=== PATIENT | male | born 1935 | race Caucasian/White ===

== ENCOUNTER 2019-06-04 19:52 | Observation (INO) | payer MEDICARE, OTHER ==
[2019-06-04] MEDS ORDERED: Sodium Chloride 0.9% 10 ML Syringe FLUSH PRN (20:03)
[2019-06-04] MEDS ORDERED: Sodium Chloride 0.9% 500 ML IV ONE (20:04)
--- NOTE | 2019-06-04 20:26 | EDM.PDOC ---
ED HPI GENERAL MEDICAL PROBLEM - General Chief Complaint: Syncope Stated Complaint: PASSED OUT Time Seen by Provider: 06/04/19 20:20 Source of Information: Reports: Patient History Limitations: Reports: No Limitations - History of Present Illness INITIAL COMMENTS - FREE TEXT/NARRATIVE: Presents with syncopal episode x 2. Patient was seated at a restaurant this evening, he leaned to the side against another person and became unresponsive x 20 seconds. He stated prior to that episode that he "didn't feel well" and family states he appeared diaphoretic. A nurse at the restaurant noted a slow heart rate. He then had another syncopal episode witnessed by EMS, this lasted only a few seconds. BP on EMS arrival was 85/57, they administered 500ml NS bolus. He feels much improved. There were no injuries. Admits to having a Blood[employer] [place] this evening. At no time did he have chest pain or shortness of breath. Patient did have diarrhea this morning and again this afternoon, non- bloody, not melanotic. He denies N/V or abdominal pain and has not been told he has an aortic aneurysm. Denies recent antibiotic use or travel outside of the country. Onset: Today Duration: Hour(s): (1) Severity: Moderate - Related Data Allergies Allergy/AdvReac Type Severity Reaction Status Date / Time acetaminophen [From Vicodin] Allergy UNKNOWN Verified 01/26/13 14:38 hydrocodone bitartrate Allergy UNKNOWN Verified 01/26/13 14:38 [From Vicodin] Home Meds: Home Meds Multivitamin [Multi Vitamin Daily] 1 each PO DAILY 01/27/13 [History] Simvastatin [Zocor] 40 mg PO BEDTIME 01/27/13 [History] Tobramycin 0.3% [Tobramycin 0.3% Ophth Soln] 1 drop EYERT Q4HWA 01/27/13 [ History] Aspirin [Ecotrin] 325 mg PO DAILY 11/05/15 [History] Levothyroxine [Synthroid] 100 mcg PO DAILY 11/05/15 [History] Lisinopril 2.5 mg PO DAILY 11/05/15 [History] Pioglitazone HCl [Actos] 30 mg PO DAILY 11/05/15 [History] Tamsulosin HCl [Flomax] 0.4 mg PO DAILY #30 cap.er.24h 06/20/16 [Rx] metFORMIN HCl [Metformin HCl] 850 mg PO TID 11/05/15 [History] Cyanocobalamin (Vitamin B-12) [Vitamin B-12] 1,000 mcg PO DAILY 06/04/19 [ History] Indomethacin 25 mg PO TID 06/04/19 [History] Lisinopril [Zestril] 5 mg PO DAILY 06/04/19 [History] Meloxicam 15 mg PO DAILY 06/04/19 [History] Past Medical History HEENT History: Reports: Cataract Cardiovascular History: Reports: High Cholesterol, Hypertension Endocrine/Metabolic History: Reports: Diabetes, Type II - Past Surgical History Neurological Surgical History: Reports: Laminectomy Social & Family History - Family History Family Medical History: Noncontributory - Alcohol Use Alcohol Use History: Yes Alcohol Use in Last Twelve Months: Yes Alcohol Use Frequency: Daily ED ROS GENERAL - Review of Systems Review Of Systems: Comprehensive ROS is negative, except as noted in HPI. - Physical Exam Exam: See Below Exam Limited By: No Limitations General Appearance: Alert, WD/WN, No Apparent Distress Eye Exam: Bilateral Eye: EOMI, PERRL Ears: Normal External Exam Nose: Normal Inspection Throat/Mouth: Normal Inspection, No Airway Compromise Head Exam: Atraumatic, Normocephalic Neck: Supple Respiratory/Chest: No Respiratory Distress, Lungs Clear, Normal Breath Sounds Cardiovascular: Regular Rate, Rhythm, No Murmur GI/Abdominal: Normal Bowel Sounds, Non-Tender, No Distention, No Abnormal Bruit Neuro Exam (Abbreviated): Alert, Oriented, CN II-XII Intact, Normal Cognition, No Motor/Sensory Deficits Extremities: Normal Range of Motion Psychiatric: Normal Affect, Normal Mood Skin Exam: Warm, Dry, Intact EKG INTERPRETATION EKG Date: 06/04/19 Time: 21:32 Rhythm: NSR Rate (Beats/Min): 84 [place]: Normal P-Wave: Present QRS: RBBB ST-T: Normal Course - Vital Signs Last Recorded V/S: Orthostatic Blood Pressure [ 105/66 Standing] Orthostatic Blood Pressure [ 93/60 Sitting] Orthostatic Blood Pressure [ 89/59 Supine] - Orders/Labs/Meds Orders: Active Orders 24 hr Category Date Time Status EKG Documentation Completion [RC] ASDIRECTED Care 06/04/19 20:03 Active Orthostatic Vital Signs [RC] ASDIRECTED Care 06/04/19 20:11 Active CTA Abd Pelv w Cont [CT] Stat Exams 06/04/19 22:41 Taken CULTURE BLOOD [BC] Urgent Lab 06/04/19 20:15 Received CULTURE BLOOD [BC] Urgent Lab 06/04/19 20:20 Received Sodium Chloride 0.9% [Saline Flush] Med 06/04/19 20:03 Active 10 ml FLUSH ASDIRECTED PRN Blood Culture x2 Reflex Set [OM.PC] Urgent Oth 06/04/19 20:02 Ordered Saline Lock Insert [OM.PC] Routine Oth 06/04/19 20:03 Ordered EKG 12 Lead [EK] Stat Ther 06/04/19 20:02 Ordered Medication Orders Sodium Chloride (Saline Flush) 10 ml FLUSH ASDIRECTED PRN PRN Reason: Keep Vein Open Labs: Laboratory Tests 06/04/19 06/04/19 06/04/19 Range/Units 20:15 20:15 20:15 WBC 9.4 (4.5-12.0) X10-3/uL RBC 4.49 (4.30-5.75) x10(6)uL Hgb 14.0 (13.5-17.8) g/dL Hct 41.1 (30.0-51.3) % MCV 91.7 (80-96) fL MCH 31.2 (27.7-33.6) pg MCHC 34.0 (32.2-35.4) g/dL RDW 12.9 (11.5-15.5) % Plt Count 334 (125-369) X10(3)uL MPV 7.5 (7.4-10.4) fL Neut % (Auto) 72.7 (46-82) % Lymph % (Auto) 19.8 (13-37) % [place] % (Auto) 5.5 (4-12) % Eos % (Auto) 2 (1.0-5.0) % Baso % (Auto) 0 (0-2) % Neut # (Auto) 6.8 (1.6-8.3) # Lymph # (Auto) 1.9 (0.6-5.0) # [place] # (Auto) 0.5 (0.0-1.3) # Eos # (Auto) 0.2 (0.0-0.8) # Baso # (Auto) 0.0 (0.0-0.2) # PT 9.6 (8.7-11.1) INR 0.99 (0.89-1.13) APTT (24.4-33.2) SECONDS Sodium 138 (135-145) mmol/L Potassium 4.2 (3.5-5.3) mmol/L Chloride 103 (100-110) mmol/L Carbon Dioxide 25 (21-32) mmol/L BUN 21 H (7-18) mg/dL Creatinine 1.4 H (0.70-1.30) mg/dL Est Cr Clr Drug Dosing TNP Estimated GFR (MDRD) 48 L (>60) BUN/Creatinine Ratio 15.0 (9-20) Glucose 206 H (80-116) mg/dL Lactic Acid (0.4-2.0) mmol/L Calcium 8.4 L (8.6-10.2) mg/dL Magnesium (1.8-2.5) mg/dL Total Bilirubin 0.3 (0.1-1.3) mg/dL AST 13 (5-25) IU/L ALT 14 (12-36) U/L Alkaline Phosphatase 64 (56-112) IU/L Troponin I (<0.017-0.056) ng/mL Total Protein 6.2 (6.0-8.0) g/dL Albumin 3.6 (3.2-4.6) g/dL Globulin 2.6 g/dL Albumin/Globulin Ratio 1.4 Urine Color (YELLOW) Urine Appearance (CLEAR) Urine pH (5.0-6.5) Ur Specific [place] (1.010-1.025) Urine Protein (NEGATIVE) mg/dL Urine Glucose (UA) (NORMAL) mg/dL Urine Ketones (NEGATIVE) mg/dL Urine Occult Blood (NEGATIVE) Urine Nitrite (NEGATIVE) Urine Bilirubin (NEGATIVE) Urine Urobilinogen (NEGATIVE) mg/dL Ur Leukocyte Esterase (NEGATIVE) Urine RBC (0-5) Urine WBC (0-5) Ur Squamous Epith Cells (NS,R,O) Calcium Oxalate Crystal (NS) Urine Bacteria (NS) Urine Mucus (NS) Ethyl Alcohol (<0.03) % 06/04/19 06/04/19 06/04/19 Range/Units 20:15 20:15 20:15 WBC (4.5-12.0) X10-3/uL RBC (4.30-5.75) x10(6)uL Hgb (13.5-17.8) g/dL Hct (30.0-51.3) % MCV (80-96) fL MCH (27.7-33.6) pg MCHC (32.2-35.4) g/dL RDW (11.5-15.5) % Plt Count (125-369) X10(3)uL MPV (7.4-10.4) fL Neut % (Auto) (46-82) % Lymph % (Auto) (13-37) % [place] % (Auto) (4-12) % Eos % (Auto) (1.0-5.0) % Baso % (Auto) (0-2) % Neut # (Auto) (1.6-8.3) # Lymph # (Auto) (0.6-5.0) # [place] # (Auto) (0.0-1.3) # Eos # (Auto) (0.0-0.8) # Baso # (Auto) (0.0-0.2) # PT (8.7-11.1) INR (0.89-1.13) APTT 22.1 L (24.4-33.2) SECONDS Sodium (135-145) mmol/L Potassium (3.5-5.3) mmol/L Chloride (100-110) mmol/L Carbon Dioxide (21-32) mmol/L BUN (7-18) mg/dL Creatinine (0.70-1.30) mg/dL Est Cr Clr Drug Dosing Estimated GFR (MDRD) (>60) BUN/Creatinine Ratio (9-20) Glucose (80-116) mg/dL Lactic Acid 1.7 (0.4-2.0) mmol/L Calcium (8.6-10.2) mg/dL Magnesium 1.5 L (1.8-2.5) mg/dL Total Bilirubin (0.1-1.3) mg/dL AST (5-25) IU/L ALT (12-36) U/L Alkaline Phosphatase (56-112) IU/L Troponin I (<0.017-0.056) ng/mL Total Protein (6.0-8.0) g/dL Albumin (3.2-4.6) g/dL Globulin g/dL Albumin/Globulin Ratio Urine Color (YELLOW) Urine Appearance (CLEAR) Urine pH (5.0-6.5) Ur Specific [place] (1.010-1.025) Urine Protein (NEGATIVE) mg/dL Urine Glucose (UA) (NORMAL) mg/dL Urine Ketones (NEGATIVE) mg/dL Urine Occult Blood (NEGATIVE) Urine Nitrite (NEGATIVE) Urine Bilirubin (NEGATIVE) Urine Urobilinogen (NEGATIVE) mg/dL Ur Leukocyte Esterase (NEGATIVE) Urine RBC (0-5) Urine WBC (0-5) Ur Squamous Epith Cells (NS,R,O) Calcium Oxalate Crystal (NS) Urine Bacteria (NS) Urine Mucus (NS) Ethyl Alcohol (<0.03) % 06/04/19 06/04/19 06/04/19 Range/Units 20:20 20:20 21:40 WBC (4.5-12.0) X10-3/uL RBC (4.30-5.75) x10(6)uL Hgb (13.5-17.8) g/dL Hct (30.0-51.3) % MCV (80-96) fL MCH (27.7-33.6) pg MCHC (32.2-35.4) g/dL RDW (11.5-15.5) % Plt Count (125-369) X10(3)uL MPV (7.4-10.4) fL Neut % (Auto) (46-82) % Lymph % (Auto) (13-37) % [place] % (Auto) (4-12) % Eos % (Auto) (1.0-5.0) % Baso % (Auto) (0-2) % Neut # (Auto) (1.6-8.3) # Lymph # (Auto) (0.6-5.0) # [place] # (Auto) (0.0-1.3) # Eos # (Auto) (0.0-0.8) # Baso # (Auto) (0.0-0.2) # PT (8.7-11.1) INR (0.89-1.13) APTT (24.4-33.2) SECONDS Sodium (135-145) mmol/L Potassium (3.5-5.3) mmol/L Chloride (100-110) mmol/L Carbon Dioxide (21-32) mmol/L BUN (7-18) mg/dL Creatinine (0.70-1.30) mg/dL Est Cr Clr Drug Dosing Estimated GFR (MDRD) (>60) BUN/Creatinine Ratio (9-20) Glucose (80-116) mg/dL Lactic Acid (0.4-2.0) mmol/L Calcium (8.6-10.2) mg/dL Magnesium (1.8-2.5) mg/dL Total Bilirubin (0.1-1.3) mg/dL AST (5-25) IU/L ALT (12-36) U/L Alkaline Phosphatase (56-112) IU/L Troponin I < 0.017 L (<0.017-0.056) ng/mL Total Protein (6.0-8.0) g/dL Albumin (3.2-4.6) g/dL Globulin g/dL Albumin/Globulin Ratio Urine Color Yellow (YELLOW) Urine Appearance Slightly cloudy (CLEAR) Urine pH 5.0 (5.0-6.5) Ur Specific [place] 1.025 (1.010-1.025) Urine Protein 30 H (NEGATIVE) mg/dL Urine Glucose (UA) Normal (NORMAL) mg/dL Urine Ketones 15 H (NEGATIVE) mg/dL Urine Occult Blood Negative (NEGATIVE) Urine Nitrite Negative (NEGATIVE) Urine Bilirubin Small H (NEGATIVE) Urine Urobilinogen 4 H (NEGATIVE) mg/dL Ur Leukocyte Esterase Small H (NEGATIVE) Urine RBC 0-5 (0-5) Urine WBC 0-5 (0-5) Ur Squamous Epith Cells Few H (NS,R,O) Calcium Oxalate Crystal Few H (NS) Urine Bacteria Few H (NS) Urine Mucus Few H (NS) Ethyl Alcohol < 0.03 (<0.03) % 06/04/19 Range/Units 23:10 WBC (4.5-12.0) X10-3/uL RBC (4.30-5.75) x10(6)uL Hgb (13.5-17.8) g/dL Hct (30.0-51.3) % MCV (80-96) fL MCH (27.7-33.6) pg MCHC (32.2-35.4) g/dL RDW (11.5-15.5) % Plt Count (125-369) X10(3)uL MPV (7.4-10.4) fL Neut % (Auto) (46-82) % Lymph % (Auto) (13-37) % [place] % (Auto) (4-12) % Eos % (Auto) (1.0-5.0) % Baso % (Auto) (0-2) % Neut # (Auto) (1.6-8.3) # Lymph # (Auto) (0.6-5.0) # [place] # (Auto) (0.0-1.3) # Eos # (Auto) (0.0-0.8) # Baso # (Auto) (0.0-0.2) # PT (8.7-11.1) INR (0.89-1.13) APTT (24.4-33.2) SECONDS Sodium (135-145) mmol/L Potassium (3.5-5.3) mmol/L Chloride (100-110) mmol/L Carbon Dioxide (21-32) mmol/L BUN (7-18) mg/dL Creatinine (0.70-1.30) mg/dL Est Cr Clr Drug Dosing Estimated GFR (MDRD) (>60) BUN/Creatinine Ratio (9-20) Glucose (80-116) mg/dL Lactic Acid (0.4-2.0) mmol/L Calcium (8.6-10.2) mg/dL Magnesium (1.8-2.5) mg/dL Total Bilirubin (0.1-1.3) mg/dL AST (5-25) IU/L ALT (12-36) U/L Alkaline Phosphatase (56-112) IU/L Troponin I < 0.017 L (<0.017-0.056) ng/mL Total Protein (6.0-8.0) g/dL Albumin (3.2-4.6) g/dL Globulin g/dL Albumin/Globulin Ratio Urine Color (YELLOW) Urine Appearance (CLEAR) Urine pH (5.0-6.5) Ur Specific [place] (1.010-1.025) Urine Protein (NEGATIVE) mg/dL Urine Glucose (UA) (NORMAL) mg/dL Urine Ketones (NEGATIVE) mg/dL Urine Occult Blood (NEGATIVE) Urine Nitrite (NEGATIVE) Urine Bilirubin (NEGATIVE) Urine Urobilinogen (NEGATIVE) mg/dL Ur Leukocyte Esterase (NEGATIVE) Urine RBC (0-5) Urine WBC (0-5) Ur Squamous Epith Cells (NS,R,O) Calcium Oxalate Crystal (NS) Urine Bacteria (NS) Urine Mucus (NS) Ethyl Alcohol (<0.03) % Meds: Medications Generic Name Dose Route Start Last Admin Trade Name Freq PRN Reason Stop Dose Admin Sodium Chloride 10 ml 06/04/19 20:03 Saline Flush FLUSH ASDIRECTED PRN Keep Vein Open Discontinued Medications Generic Name Dose Route Start Last Admin Trade Name Freq PRN Reason Stop Dose Admin Sodium Chloride 500 mls @ 500 mls/hr 06/04/19 20:04 06/04/19 20:35 Normal Saline IV 06/04/19 21:03 500 mls/hr .BOLUS ONE Administration Magnesium Sulfate 2 gm/ Premix 50 mls @ 150 mls/hr 06/04/19 20:46 06/04/19 20 :58 IV 06/04/19 21:05 150 mls/hr ONETIME ONE Administration Iopamidol 150 ml 06/04/19 21:55 06/04/19 22:26 Isovue-370 (76%) IV 06/04/19 21:56 Not Given ONETIME ONE Iopamidol 100 ml 06/04/19 22:27 Isovue-370 (76%) IV 06/04/19 22:28 ONETIME ONE Thiamine HCl 100 mg 06/04/19 20:48 06/04/19 20:56 Vitamin B-1 IVPUSH 06/04/19 20:49 100 mg ONETIME ONE Administration - Radiology Interpretation Free Text/Narrative:: CTA Aorta: Abdominal aorta is normal in caliber. No sign of dissection. 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 Mesenteric arteries are otherwise patent. Colitis is present in the descending colon, this is likely infectious in nature. No convincing evidence for ischemic bowel. No other acute or significant finding. - Re-Assessments/Exams Free Text/Narrative Re-Assessment/Exam: 06/04/19 23:16 BP improved from 89/59 to 104/65 after IVF. Departure - Departure Time of Disposition: 23:33 Disposition: Refer to Observation Condition: Fair Clinical Impression: Colitis, Hypotension due to hypovolemia Syncope Qualifiers: Syncope type: unspecified Qualified Code(s): R55 - Syncope and collapse - Discharge Information *PRESCRIPTION DRUG MONITORING PROGRAM REVIEWED*: Yes *COPY OF PRESCRIPTION DRUG MONITORING REPORT IN PATIENT SHALONDA: No Referrals: Nathanael Brown MD [Primary Care Provider] - Forms: ED Department Discharge Sepsis Event Note - Focused Exam Date Exam was Performed: 06/04/19 Time Exam was Performed: 23:33 - My Orders Last 24 Hours: My Active Orders 06/04/19 20:02 Blood Culture x2 Reflex Set [OM.PC] Urgent EKG 12 Lead [EK] Stat 06/04/19 20:03 EKG Documentation Completion [RC] ASDIRECTED Sodium Chloride 0.9% [Saline Flush] 10 ml FLUSH ASDIRECTED PRN Saline Lock Insert [OM.PC] Routine 06/04/19 20:11 Orthostatic Vital Signs [RC] ASDIRECTED 06/04/19 20:15 CULTURE BLOOD [BC] Urgent 06/04/19 20:20 CULTURE BLOOD [BC] Urgent 06/04/19 22:41 CTA Abd Pelv w Cont [CT] Stat - Assessment/Plan Last 24 Hours: My Active Orders 06/04/19 20:02 Blood Culture x2 Reflex Set [OM.PC] Urgent EKG 12 Lead [EK] Stat 06/04/19 20:03 EKG Documentation Completion [RC] ASDIRECTED Sodium Chloride 0.9% [Saline Flush] 10 ml FLUSH ASDIRECTED PRN Saline Lock Insert [OM.PC] Routine 06/04/19 20:11 Orthostatic Vital Signs [RC] ASDIRECTED 06/04/19 20:15 CULTURE BLOOD [BC] Urgent 06/04/19 20:20 CULTURE BLOOD [BC] Urgent 06/04/19 22:41 CTA Abd Pelv w Cont [CT] Stat
[2019-06-04] MEDS ORDERED: Magnesium Sulfate/Water 2 GM in Premix Bag 1 BAG IV ONE (20:46)
[2019-06-04] MEDS ORDERED: Thiamine 200 MG/2 ML MDV IVPUSH ONE (20:48)
[2019-06-04] MEDS ORDERED: Iopamidol 755 MG/ML 150 ML Bottle IV ONE (21:55)
[2019-06-04] MEDS ORDERED: Iopamidol 755 Mg/ML 100 ML Bottle IV ONE (22:27)
[2019-06-04] MEDS ORDERED: Sodium Chloride 0.9% 1,000 ML IV SCH (23:45)
[2019-06-05] MEDS: Azithromycin 500 MG Tab PO SCH ×2 (00:36→12:29)
[2019-06-05] MEDS ORDERED: Levothyroxine 100 MCG Tab**PT OWN PO SCH (07:30)
[2019-06-05] MEDS ORDERED: Aspirin 325 MG Tab.EC PO SCH (09:00)
[2019-06-05] MEDS ORDERED: Enoxaparin 30 MG/0.3 ML Syringe SUBCUT SCH (10:15)
--- NOTE | 2019-06-05 11:37 | PCM.HP.2 ---
H&P History of Present Illness - General Date of Service: 06/05/19 Admit Problem/Dx: Admission Diagnosis/Problem Admission Diagnosis/Problem Syncope Source of Information: Patient, EMS Notes Reviewed History Limitations: Reports: No Limitations - History of Present Illness Initial Comments - Free Text/Narative: This is an 83-year-old male patient that went out to eat last night with his family. He had episode where he didn't feel well and appeared to be diaphoretic. And he slumped over at the table. Asked about 20 seconds. The ER was called when EMS arrived his blood pressures 85/57. He was sent to the ER they gave him 500 mils of bolus fluid and he felt much better. He said he had bloody made at night. He denied chest pain, shortness of breath, palpitations. 2 episodes of diarrhea the day before but nothing since. No nausea, vomiting, fevers, cough. He has noticed change in medicines recently. He is on Cipro 5 mg a day for blood pressure medication. Is on tamsulosin the past but says he is not taking it. The patient states he did not lose complete consciousness. - Related Data Allergies/Adverse Reactions: Allergies Allergy/AdvReac Type Severity Reaction Status Date / Time hydrocodone bitartrate Allergy UNKNOWN Verified 01/26/13 14:38 [From Vicodin] Home Medications: Home Meds Multivitamin [Multi Vitamin Daily] 1 each PO DAILY 01/27/13 [History] Simvastatin [Zocor] 40 mg PO BEDTIME 01/27/13 [History] Aspirin [Ecotrin] 325 mg PO DAILY 11/05/15 [History] Levothyroxine [Synthroid] 100 mcg PO DAILY 11/05/15 [History] Pioglitazone HCl [Actos] 30 mg PO DAILY 11/05/15 [History] metFORMIN HCl [Metformin HCl] 850 mg PO TID 11/05/15 [History] Cyanocobalamin (Vitamin B-12) [Vitamin B-12] 1,000 mcg PO DAILY 06/04/19 [ History] Indomethacin 25 mg PO TID 06/04/19 [History] Levothyroxine [Synthroid] 100 mcg PO ACBREAKFAST 06/04/19 [History] Lisinopril [Zestril] 5 mg PO DAILY 06/04/19 [History] Meloxicam 15 mg PO DAILY 06/04/19 [History] Past Medical History HEENT History: Reports: Cataract, Macular Degeneration Other HEENT History: gets a checkup at eye dr every 6 months Cardiovascular History: Reports: High Cholesterol, Hypertension Musculoskeletal History: Reports: Gout Other Musculoskeletal History: no flare ups in 2 years Neurological History: Reports: Vertigo Other Neuro History: tonight Psychiatric History: Reports: Depression Endocrine/Metabolic History: Reports: Diabetes, Type II, Other (See Below) Other Endocrine/Metabolic History: takes levothyroxine - Infectious Disease History Infectious Disease History: Reports: Chicken Pox, Measles, Mumps - Past Surgical History HEENT Surgical History: Reports: Cataract Surgery Cardiovascular Surgical History: Reports: None GI Surgical History: Reports: Colonoscopy Endocrine Surgical History: Reports: None Neurological Surgical History: Reports: Laminectomy Musculoskeletal Surgical History: Reports: None Social & Family History - Family History Other Psychiatric Family History: Alcoholism Endocrine/Metabolic: Reports: Hypothyroidism - Tobacco Use Smoking Status *Q: Never Smoker Second Hand Smoke Exposure: No - Caffeine Use Caffeine Use: Reports: Coffee Other Caffeine Use: 4-5 cups - Alcohol Use Days Per Week of Alcohol Use: 7 Number of Drinks Per Day: 1 Total Drinks Per Week: 7 Date of Last Drink: 06/04/19 Time of Last Drink: 18:00 - Recreational Drug Use Recreational Drug Use: No H&P Review of Systems - Review of Systems: Review Of Systems: See Below General: Reports: No Symptoms HEENT: Reports: No Symptoms Pulmonary: Reports: No Symptoms Cardiovascular: Reports: No Symptoms Gastrointestinal: Reports: Diarrhea. Denies: Abdominal Pain, Bloody Stool, Nausea, Vomiting Genitourinary: Reports: No Symptoms Musculoskeletal: Reports: No Symptoms Skin: Reports: No Symptoms Psychiatric: Reports: No Symptoms Neurological: Reports: Dizziness Hematologic/Lymphatic: Reports: No Symptoms Immunologic: Reports: No Symptoms Exam - Exam Exam: See Below - Vital Signs Vital Signs: Last Vital Signs Temp 98.1 F 06/05/19 03:37 Pulse 77 06/05/19 03:37 Resp 18 06/05/19 03:37 BP 108/69 06/05/19 03:37 Pulse Ox 97 06/05/19 03:37 Orthostatic Blood Pressure [ 105/66 Standing] Orthostatic Blood Pressure [ 93/60 Sitting] Orthostatic Blood Pressure [ 89/59 Supine] Weight: 184 lb 9.6 oz - Exam General: Alert, Oriented, Cooperative HEENT: PERRLA, Hearing Intact, Posterior Pharynx Clear, TMs Clear Neck: Supple, Trachea Midline. No: Carotid Bruit Lungs: Clear to Auscultation, Normal Respiratory Effort Cardiovascular: Regular Rate, Regular Rhythm. No: Irregular Rhythm, Bradycardia , Tachycardia, Systolic Murmur, Diastolic Murmur GI/Abdominal Exam: Normal Bowel Sounds, Soft, Non-Tender, No Organomegaly, No Distention, No Abnormal Bruit, No Mass Back Exam: Normal Inspection, Full Range of Motion Extremities: Normal Inspection, Normal Range of Motion, Non-Tender, No Pedal Edema, Normal Capillary Refill, Other (Strength intact upper and lower extremities 5+.) Skin: Warm, Dry, Intact Neurological: Normal Gait, Normal Speech, Normal Tone Neuro Extensive - Mental Status: Alert, Oriented x3, Normal Mood/Affect, Normal Cognition - Patient Data Lab Results Last 24 hrs: Laboratory Results - last 24 hr 06/04/19 06/04/19 06/04/19 Range/Units 20:15 20:15 20:15 WBC 9.4 (4.5-12.0) X10-3/uL RBC 4.49 (4.30-5.75) x10(6)uL Hgb 14.0 (13.5-17.8) g/dL Hct 41.1 (30.0-51.3) % MCV 91.7 (80-96) fL MCH 31.2 (27.7-33.6) pg MCHC 34.0 (32.2-35.4) g/dL RDW 12.9 (11.5-15.5) % Plt Count 334 (125-369) X10(3)uL MPV 7.5 (7.4-10.4) fL Neut % (Auto) 72.7 (46-82) % Lymph % (Auto) 19.8 (13-37) % Cocke % (Auto) 5.5 (4-12) % Eos % (Auto) 2 (1.0-5.0) % Baso % (Auto) 0 (0-2) % Neut # (Auto) 6.8 (1.6-8.3) # Lymph # (Auto) 1.9 (0.6-5.0) # Cocke # (Auto) 0.5 (0.0-1.3) # Eos # (Auto) 0.2 (0.0-0.8) # Baso # (Auto) 0.0 (0.0-0.2) # PT 9.6 (8.7-11.1) INR 0.99 (0.89-1.13) APTT (24.4-33.2) SECONDS Sodium 138 (135-145) mmol/L Potassium 4.2 (3.5-5.3) mmol/L Chloride 103 (100-110) mmol/L Carbon Dioxide 25 (21-32) mmol/L BUN 21 H (7-18) mg/dL Creatinine 1.4 H (0.70-1.30) mg/dL Est Cr Clr Drug Dosing TNP Estimated GFR (MDRD) 48 L (>60) BUN/Creatinine Ratio 15.0 (9-20) Glucose 206 H (80-116) mg/dL POC Glucose (80-116) mg/dL Lactic Acid (0.4-2.0) mmol/L Calcium 8.4 L (8.6-10.2) mg/dL Magnesium (1.8-2.5) mg/dL Total Bilirubin 0.3 (0.1-1.3) mg/dL AST 13 (5-25) IU/L ALT 14 (12-36) U/L Alkaline Phosphatase 64 (56-112) IU/L Troponin I (<0.017-0.056) ng/mL Total Protein 6.2 (6.0-8.0) g/dL Albumin 3.6 (3.2-4.6) g/dL Globulin 2.6 g/dL Albumin/Globulin Ratio 1.4 Urine Color (YELLOW) Urine Appearance (CLEAR) Urine pH (5.0-6.5) Ur Specific [place] (1.010-1.025) Urine Protein (NEGATIVE) mg/dL Urine Glucose (UA) (NORMAL) mg/dL Urine Ketones (NEGATIVE) mg/dL Urine Occult Blood (NEGATIVE) Urine Nitrite (NEGATIVE) Urine Bilirubin (NEGATIVE) Urine Urobilinogen (NEGATIVE) mg/dL Ur Leukocyte Esterase (NEGATIVE) Urine RBC (0-5) Urine WBC (0-5) Ur Squamous Epith Cells (NS,R,O) Calcium Oxalate Crystal (NS) Urine Bacteria (NS) Urine Mucus (NS) Ethyl Alcohol (<0.03) % 06/04/19 06/04/19 06/04/19 Range/Units 20:15 20:15 20:15 WBC (4.5-12.0) X10-3/uL RBC (4.30-5.75) x10(6)uL Hgb (13.5-17.8) g/dL Hct (30.0-51.3) % MCV (80-96) fL MCH (27.7-33.6) pg MCHC (32.2-35.4) g/dL RDW (11.5-15.5) % Plt Count (125-369) X10(3)uL MPV (7.4-10.4) fL Neut % (Auto) (46-82) % Lymph % (Auto) (13-37) % Cocke % (Auto) (4-12) % Eos % (Auto) (1.0-5.0) % Baso % (Auto) (0-2) % Neut # (Auto) (1.6-8.3) # Lymph # (Auto) (0.6-5.0) # Cocke # (Auto) (0.0-1.3) # Eos # (Auto) (0.0-0.8) # Baso # (Auto) (0.0-0.2) # PT (8.7-11.1) INR (0.89-1.13) APTT 22.1 L (24.4-33.2) SECONDS Sodium (135-145) mmol/L Potassium (3.5-5.3) mmol/L Chloride (100-110) mmol/L Carbon Dioxide (21-32) mmol/L BUN (7-18) mg/dL Creatinine (0.70-1.30) mg/dL Est Cr Clr Drug Dosing Estimated GFR (MDRD) (>60) BUN/Creatinine Ratio (9-20) Glucose (80-116) mg/dL POC Glucose (80-116) mg/dL Lactic Acid 1.7 (0.4-2.0) mmol/L Calcium (8.6-10.2) mg/dL Magnesium 1.5 L (1.8-2.5) mg/dL Total Bilirubin (0.1-1.3) mg/dL AST (5-25) IU/L ALT (12-36) U/L Alkaline Phosphatase (56-112) IU/L Troponin I (<0.017-0.056) ng/mL Total Protein (6.0-8.0) g/dL Albumin (3.2-4.6) g/dL Globulin g/dL Albumin/Globulin Ratio Urine Color (YELLOW) Urine Appearance (CLEAR) Urine pH (5.0-6.5) Ur Specific [place] (1.010-1.025) Urine Protein (NEGATIVE) mg/dL Urine Glucose (UA) (NORMAL) mg/dL Urine Ketones (NEGATIVE) mg/dL Urine Occult Blood (NEGATIVE) Urine Nitrite (NEGATIVE) Urine Bilirubin (NEGATIVE) Urine Urobilinogen (NEGATIVE) mg/dL Ur Leukocyte Esterase (NEGATIVE) Urine RBC (0-5) Urine WBC (0-5) Ur Squamous Epith Cells (NS,R,O) Calcium Oxalate Crystal (NS) Urine Bacteria (NS) Urine Mucus (NS) Ethyl Alcohol (<0.03) % 06/04/19 06/04/19 06/04/19 Range/Units 20:20 20:20 21:40 WBC (4.5-12.0) X10-3/uL RBC (4.30-5.75) x10(6)uL Hgb (13.5-17.8) g/dL Hct (30.0-51.3) % MCV (80-96) fL MCH (27.7-33.6) pg MCHC (32.2-35.4) g/dL RDW (11.5-15.5) % Plt Count (125-369) X10(3)uL MPV (7.4-10.4) fL Neut % (Auto) (46-82) % Lymph % (Auto) (13-37) % Cocke % (Auto) (4-12) % Eos % (Auto) (1.0-5.0) % Baso % (Auto) (0-2) % Neut # (Auto) (1.6-8.3) # Lymph # (Auto) (0.6-5.0) # Cocke # (Auto) (0.0-1.3) # Eos # (Auto) (0.0-0.8) # Baso # (Auto) (0.0-0.2) # PT (8.7-11.1) INR (0.89-1.13) APTT (24.4-33.2) SECONDS Sodium (135-145) mmol/L Potassium (3.5-5.3) mmol/L Chloride (100-110) mmol/L Carbon Dioxide (21-32) mmol/L BUN (7-18) mg/dL Creatinine (0.70-1.30) mg/dL Est Cr Clr Drug Dosing Estimated GFR (MDRD) (>60) BUN/Creatinine Ratio (9-20) Glucose (80-116) mg/dL POC Glucose (80-116) mg/dL Lactic Acid (0.4-2.0) mmol/L Calcium (8.6-10.2) mg/dL Magnesium (1.8-2.5) mg/dL Total Bilirubin (0.1-1.3) mg/dL AST (5-25) IU/L ALT (12-36) U/L Alkaline Phosphatase (56-112) IU/L Troponin I < 0.017 L (<0.017-0.056) ng/mL Total Protein (6.0-8.0) g/dL Albumin (3.2-4.6) g/dL Globulin g/dL Albumin/Globulin Ratio Urine Color Yellow (YELLOW) Urine Appearance Slightly cloudy (CLEAR) Urine pH 5.0 (5.0-6.5) Ur Specific [place] 1.025 (1.010-1.025) Urine Protein 30 H (NEGATIVE) mg/dL Urine Glucose (UA) Normal (NORMAL) mg/dL Urine Ketones 15 H (NEGATIVE) mg/dL Urine Occult Blood Negative (NEGATIVE) Urine Nitrite Negative (NEGATIVE) Urine Bilirubin Small H (NEGATIVE) Urine Urobilinogen 4 H (NEGATIVE) mg/dL Ur Leukocyte Esterase Small H (NEGATIVE) Urine RBC 0-5 (0-5) Urine WBC 0-5 (0-5) Ur Squamous Epith Cells Few H (NS,R,O) Calcium Oxalate Crystal Few H (NS) Urine Bacteria Few H (NS) Urine Mucus Few H (NS) Ethyl Alcohol < 0.03 (<0.03) % 06/04/19 06/05/19 06/05/19 Range/Units 23:10 06:28 07:15 WBC 6.1 (4.5-12.0) X10-3/uL RBC 3.65 L (4.30-5.75) x10(6)uL Hgb 11.7 L (13.5-17.8) g/dL Hct 33.6 (30.0-51.3) % MCV 92.0 (80-96) fL MCH 32.2 (27.7-33.6) pg MCHC 35.0 (32.2-35.4) g/dL RDW 12.9 (11.5-15.5) % Plt Count 251 (125-369) X10(3)uL MPV 7.4 (7.4-10.4) fL Neut % (Auto) 54.5 (46-82) % Lymph % (Auto) 35.6 (13-37) % [place]ke % (Auto) 8.1 (4-12) % Eos % (Auto) 1 (1.0-5.0) % Baso % (Auto) 0 (0-2) % Neut # (Auto) 3.3 (1.6-8.3) # Lymph # (Auto) 2.2 (0.6-5.0) # Cocke # (Auto) 0.5 (0.0-1.3) # Eos # (Auto) 0.1 (0.0-0.8) # Baso # (Auto) 0.0 (0.0-0.2) # PT (8.7-11.1) INR (0.89-1.13) APTT (24.4-33.2) SECONDS Sodium (135-145) mmol/L Potassium (3.5-5.3) mmol/L Chloride (100-110) mmol/L Carbon Dioxide (21-32) mmol/L BUN (7-18) mg/dL Creatinine (0.70-1.30) mg/dL Est Cr Clr Drug Dosing Estimated GFR (MDRD) (>60) BUN/Creatinine Ratio (9-20) Glucose (80-116) mg/dL POC Glucose 111 (80-116) mg/dL Lactic Acid (0.4-2.0) mmol/L Calcium (8.6-10.2) mg/dL Magnesium (1.8-2.5) mg/dL Total Bilirubin (0.1-1.3) mg/dL AST (5-25) IU/L ALT (12-36) U/L Alkaline Phosphatase (56-112) IU/L Troponin I < 0.017 L (<0.017-0.056) ng/mL Total Protein (6.0-8.0) g/dL Albumin (3.2-4.6) g/dL Globulin g/dL Albumin/Globulin Ratio Urine Color (YELLOW) Urine Appearance (CLEAR) Urine pH (5.0-6.5) Ur Specific [place] (1.010-1.025) Urine Protein (NEGATIVE) mg/dL Urine Glucose (UA) (NORMAL) mg/dL Urine Ketones (NEGATIVE) mg/dL Urine Occult Blood (NEGATIVE) Urine Nitrite (NEGATIVE) Urine Bilirubin (NEGATIVE) Urine Urobilinogen (NEGATIVE) mg/dL Ur Leukocyte Esterase (NEGATIVE) Urine RBC (0-5) Urine WBC (0-5) Ur Squamous Epith Cells (NS,R,O) Calcium Oxalate Crystal (NS) Urine Bacteria (NS) Urine Mucus (NS) Ethyl Alcohol (<0.03) % 06/05/19 Range/Units 07:15 WBC (4.5-12.0) X10-3/uL RBC (4.30-5.75) x10(6)uL Hgb (13.5-17.8) g/dL Hct (30.0-51.3) % MCV (80-96) fL MCH (27.7-33.6) pg MCHC (32.2-35.4) g/dL RDW (11.5-15.5) % Plt Count (125-369) X10(3)uL MPV (7.4-10.4) fL Neut % (Auto) (46-82) % Lymph % (Auto) (13-37) % [place] % (Auto) (4-12) % Eos % (Auto) (1.0-5.0) % Baso % (Auto) (0-2) % Neut # (Auto) (1.6-8.3) # Lymph # (Auto) (0.6-5.0) # Cocke # (Auto) (0.0-1.3) # Eos # (Auto) (0.0-0.8) # Baso # (Auto) (0.0-0.2) # PT (8.7-11.1) INR (0.89-1.13) APTT (24.4-33.2) SECONDS Sodium 142 (135-145) mmol/L Potassium 4.2 (3.5-5.3) mmol/L Chloride 109 D (100-110) mmol/L Carbon Dioxide 25 (21-32) mmol/L BUN 18 (7-18) mg/dL Creatinine 1.1 (0.70-1.30) mg/dL Est Cr Clr Drug Dosing 53.89 Estimated GFR (MDRD) > 60 (>60) BUN/Creatinine Ratio 16.4 (9-20) Glucose 114 D (80-116) mg/dL POC Glucose (80-116) mg/dL Lactic Acid (0.4-2.0) mmol/L Calcium 8.0 L (8.6-10.2) mg/dL Magnesium (1.8-2.5) mg/dL Total Bilirubin (0.1-1.3) mg/dL AST (5-25) IU/L ALT (12-36) U/L Alkaline Phosphatase (56-112) IU/L Troponin I (<0.017-0.056) ng/mL Total Protein (6.0-8.0) g/dL Albumin (3.2-4.6) g/dL Globulin g/dL Albumin/Globulin Ratio Urine Color (YELLOW) Urine Appearance (CLEAR) Urine pH (5.0-6.5) Ur Specific [place] (1.010-1.025) Urine Protein (NEGATIVE) mg/dL Urine Glucose (UA) (NORMAL) mg/dL Urine Ketones (NEGATIVE) mg/dL Urine Occult Blood (NEGATIVE) Urine Nitrite (NEGATIVE) Urine Bilirubin (NEGATIVE) Urine Urobilinogen (NEGATIVE) mg/dL Ur Leukocyte Esterase (NEGATIVE) Urine RBC (0-5) Urine WBC (0-5) Ur Squamous Epith Cells (NS,R,O) Calcium Oxalate Crystal (NS) Urine Bacteria (NS) Urine Mucus (NS) Ethyl Alcohol (<0.03) % Result Diagrams: 06/05/19 07:15 06/05/19 07:15 Sepsis Event Note - Evaluation Sepsis Screening Result: No Definite Risk - Focused Exam Vital Signs: Vital Signs Temp Pulse Resp BP Pulse Ox Pulse Ox 06/05/19 03:37 98.1 F 77 18 108/69 97 06/04/19 23:50 98.2 F 78 17 112/62 96 06/04/19 23:44 97 06/04/19 23:43 97 Date Exam was Performed: 06/05/19 Time Exam was Performed: 11:32 - Problem List (1) Palliative care status SNOMED Code(s): 445825611 ICD Code: Z51.5 - ENCOUNTER FOR PALLIATIVE CARE Status: Acute Current Visit: Yes (2) Colitis SNOMED Code(s): 95612519 ICD Code: K52.9 - NONINFECTIVE GASTROENTERITIS AND COLITIS, UNSPECIFIED Status: Acute Current Visit: Yes (3) Syncope SNOMED Code(s): 670766254 ICD Code: R55 - SYNCOPE AND COLLAPSE Status: Acute Current Visit: Yes Qualifiers: Syncope type: unspecified Qualified Code(s): R55 - Syncope and collapse Problem List Initiated/Reviewed/Updated: Yes Orders Last 24hrs: Active Orders 24 hr Category Date Time Status Admission Status [Patient Status] [ADT] Routine ADT 06/04/19 23:34 Active Ambulate [RC] PER UNIT ROUTINE Care 06/04/19 23:44 Active Blood Glucose Check, Bedside [RC] TIDMEALS Care 06/04/19 23:43 Active Cardiac Monitoring [RC] CONTINUOUS Care 06/04/19 23:44 Active EKG Documentation Completion [RC] ASDIRECTED Care 06/04/19 20:03 Active EKG Documentation Completion [RC] ASDIRECTED Care 06/05/19 15:30 Active Height and Weight [RC] DAILY Care 06/04/19 23:43 Active Intake and Output [RC] QSHIFT Care 06/04/19 23:43 Active Notify Provider Vital Signs [RC] ASDIRECTED Care 06/04/19 23:44 Active Oxygen Therapy [RC] PRN Care 06/04/19 23:43 Active Pulse Oximetry [RC] PRN Care 06/04/19 23:44 Active Up With Assistance [RC] ASDIRECTED Care 06/04/19 23:43 Active VTE/DVT Education [RC] Per Unit Routine Care 06/04/19 23:43 Active Vital Signs [RC] QSHIFT Care 06/04/19 23:43 Active Consistent Carbohydrate Diet [DIET] Diet 06/05/19 Breakfast Active CTA Abd Pelv w Cont [CT] Stat Exams 06/04/19 22:41 Taken C DIFFICILE AG/TOXIN W/REFLEX [RM] Stat Lab 06/04/19 23:48 Ordered CULTURE BLOOD [BC] Urgent Lab 06/04/19 20:15 Received CULTURE BLOOD [BC] Urgent Lab 06/04/19 20:20 Received STOOL CULTURE Stat Lab 06/04/19 23:48 Ordered TROPONIN I [CHEM] Routine Lab 06/05/19 15:30 Ordered Aspirin [Ecotrin] Med 06/05/19 09:00 Active 325 mg PO DAILY Azithromycin [Zithromax] Med 06/04/19 23:45 Active 500 mg PO Q12H Enoxaparin [Lovenox] Med 06/05/19 10:15 Active 30 mg SUBCUT Q24H Insulin Lispro [HumaLOG] Med 06/05/19 08:00 Active See Protocol SUBCUT TIDMEALS Levothyroxine [Synthroid] Med 06/05/19 07:30 Active 100 mcg PO ACBREAKFAST Multivitamins [Tab-A-Sofia] Med 06/06/19 09:00 Pending DOSE tab PO DAILY Pioglitazone [Actos] Med 06/06/19 09:00 Pending 30 mg PO DAILY Simvastatin [Zocor] Med 06/05/19 21:00 Pending 40 mg PO BEDTIME Sodium Chloride 0.9% [Normal Saline] 1,000 ml Med 06/04/19 23:45 Active IV ASDIRECTED Sodium Chloride 0.9% [Saline Flush] Med 06/04/19 20:03 Active 10 ml FLUSH ASDIRECTED PRN metFORMIN [Glucophage] Med 06/05/19 14:00 Pending 850 mg PO TID Blood Culture x2 Reflex Set [OM.PC] Urgent Oth 06/04/19 20:02 Ordered Convert IV to Saline Lock [OM.PC] Routine Oth 06/05/19 10:15 Ordered Saline Lock Insert [OM.PC] Routine Oth 06/04/19 20:03 Ordered Resuscitation Status Routine Resus Stat 06/04/19 23:43 Ordered EKG 12 Lead [EK] Routine Ther 06/05/19 10:26 Ordered EKG 12 Lead [EK] Stat Ther 06/04/19 20:02 Ordered Medication Orders Aspirin (Ecotrin) 325 mg PO DAILY [facility] Azithromycin (Zithromax) 500 mg PO Q12H [facility] Stop: 06/05/19 11:46 Last Admin: 06/05/19 00:36 Dose: 500 mg Enoxaparin Sodium (Lovenox) 30 mg SUBCUT Q24H [facility] Sodium Chloride (Normal Saline) 1,000 mls @ 100 mls/hr IV ASDIRECTED [facility] Last Admin: 06/05/19 00:35 Dose: 100 mls/hr Insulin Human Lispro (Humalog) 0 unit SUBCUT TIDMEALS [facility]; Protocol Levothyroxine Sodium (Synthroid) 100 mcg PO ACBREAKFAST [facility] Last Admin: 06/05/19 06:30 Dose: 100 mcg Metformin HCl (Glucophage) 850 mg PO TID [facility] Multivitamins/Minerals/Vitamin C (Tab-A-Sofia) tab PO DAILY [facility] Pioglitazone HCl (Actos) 30 mg PO DAILY [facility] Simvastatin (Zocor) 40 mg PO BEDTIME [facility] Sodium Chloride (Saline Flush) 10 ml FLUSH ASDIRECTED PRN PRN Reason: Keep Vein Open Assessment/Plan Comment:: 1. Admit observation 2. Telemetry 3. Hold lisinopril 4. IV fluids 5. Up with assist 6. Reviewed CT results. 7. Troponin/EKG at 3:30 AM today. 8. Ambulate - Mortality Measure Prognosis:: Good
[2019-06-05] MEDS: Insulin Lispro 100 Unit/ML 3 ML KwikPen SUBCUT SCH ×4 (12:38→18:05)
[2019-06-05 16:36] VITALS: BP 111/60; PULSE 62
--- NOTE | 2019-06-05 16:55 | PCM.SN ---
- Free Text/Narrative Note: Patient did well all day. He had no diarrhea stools, abdominal pain, dizziness or coordination difficulties. He was normal sinus rhythm with a rate of 70 her blood pressure without lisinopril was systolically about 105-112. Second troponin negative. We'll discharged home holding his lisinopril. Recheck with Dr. Brown in 1 week.
--- NOTE | 2019-06-05 17:01 | PCM.DCSUM1 ---
Discharge Summary - Hospital Course Free Text/Narrative:: Split course-patient was admitted on telemetry to observe his heart. CT scan some mild colitis in the descending colon most likely infectious. No evidence of ischemic bowel. 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 Shunt in the morning felt a little weak but no dizziness. The diarrhea stopped. He was given 500 mL bolus in the ER and that really helped. His creatinine was initially 1.7 and went back to normal. Through the day we observed this telemetry in sinus rhythm with a rate of around 70. He had no syncopal episodes or dizziness. Troponins 2 were negative. EKG showed sinus tachycardia bundle branch block. The second stated several junctional rhythm but there is a P-wave and the rate is 70 so I is normal sinus. No significant ST T abnormalities. We held his lisinopril his blood pressure systolically was 105-112. So send him home holding his Toprol this time. He'll follow-up with his regular doctor Dr. Brown in a week and see if there is any more episodes. I told the patient he feels lightheaded he should lay down and drink plenty of fluids when he goes home. Brief History: This is an 83-year-old male patient that went out to eat last night with his family. He had episode where he didn't feel well and appeared to be diaphoretic. And he slumped over at the table. Asked about 20 seconds. The ER was called when EMS arrived his blood pressures 85/57. He was sent to the ER they gave him 500 mils of bolus fluid and he felt much better. He said he had bloody made at night. He denied chest pain, shortness of breath, palpitations. 2 episodes of diarrhea the day before but nothing since. No nausea, vomiting, fevers, cough. He has noticed change in medicines recently. He is on Cipro 5 mg a day for blood pressure medication. Is on tamsulosin the past but says he is not taking it. The patient states he did not lose complete consciousness Diagnosis: Stroke: No - Discharge Data Discharge Date: 06/05/19 Discharge Disposition: Home, Self-Care 01 Condition: Good - Referral to Home Health Primary Care Physician: Nathanael Brown MD - Discharge Diagnosis/Problem(s) (1) Palliative care status SNOMED Code(s): 371411305 ICD Code: Z51.5 - ENCOUNTER FOR PALLIATIVE CARE Status: Acute Current Visit: Yes (2) Colitis SNOMED Code(s): 48312246 ICD Code: K52.9 - NONINFECTIVE GASTROENTERITIS AND COLITIS, UNSPECIFIED Status: Acute Current Visit: Yes (3) Syncope SNOMED Code(s): 832840812 ICD Code: R55 - SYNCOPE AND COLLAPSE Status: Acute Current Visit: Yes Qualifiers: Syncope type: unspecified Qualified Code(s): R55 - Syncope and collapse - Patient Instructions Diet: Diabetic Diet Activity: As Tolerated Driving: May Drive Today Showering/Bathing: May Shower Other/Special Instructions: 1. Recheck with Dr. Nathanael Brown within a week. 2. Hold his lisinopril for now. I told the patient is due blood pressure checks at home. If his systolic is up to 140 should resume it. - Discharge Plan *PRESCRIPTION DRUG MONITORING PROGRAM REVIEWED*: Yes *COPY OF PRESCRIPTION DRUG MONITORING REPORT IN PATIENT SHALONDA: No Home Medications: Home Meds Multivitamin [Multi-Vitamin Daily] 1 each PO DAILY 01/27/13 [History] Simvastatin [Zocor] 40 mg PO BEDTIME 01/27/13 [History] Aspirin [Ecotrin] 325 mg PO DAILY 11/05/15 [History] Levothyroxine [Synthroid] 100 mcg PO DAILY 11/05/15 [History] Pioglitazone HCl [Actos] 30 mg PO DAILY 11/05/15 [History] metFORMIN HCl [Metformin HCl] 850 mg PO TID 11/05/15 [History] Cyanocobalamin (Vitamin B-12) [Vitamin B-12] 1,000 mcg PO DAILY 06/04/19 [ History] Indomethacin 25 mg PO TID 06/04/19 [History] Levothyroxine [Synthroid] 100 mcg PO ACBREAKFAST 06/04/19 [History] Meloxicam 15 mg PO DAILY 06/04/19 [History] Patient Handouts: Dehydration, Adult, [id number], Colitis, Fall Prevention in Hospitals, Adult, Deep Vein Thrombosis, Syncope, [id number], Venous Thromboembolism Prevention Forms: ED Department Discharge Referrals: Nathanael Brown MD [Primary Care Provider] - - Discharge Summary/Plan Comment DC Time >30 min.: No - Patient Data Vitals - Most Recent: Last Vital Signs Temp 98.2 F 01/19/20 12:35 Pulse 62 06/05/19 12:35 Resp 18 06/05/19 12:35 BP 111/60 06/05/19 12:35 Pulse Ox 97 06/05/19 12:35 Orthostatic Blood Pressure [ 105/66 Standing] Orthostatic Blood Pressure [ 93/60 Sitting] Orthostatic Blood Pressure [ 89/59 Supine] Weight - Most Recent: 184 lb 9.6 oz I&O - Last 24 hours: Intake & Output 06/05/19 06/05/19 06/05/19 06:59 14:59 22:59 Intake Total 800 1500 Output Total 550 650 Balance 250 850 Lab Results - Last 24 hrs: Laboratory Results - last 24 hr 06/04/19 06/04/19 06/04/19 Range/Units 20:15 20:15 20:15 WBC 9.4 (4.5-12.0) X10-3/uL RBC 4.49 (4.30-5.75) x10(6)uL Hgb 14.0 (13.5-17.8) g/dL Hct 41.1 (30.0-51.3) % MCV 91.7 (80-96) fL MCH 31.2 (27.7-33.6) pg MCHC 34.0 (32.2-35.4) g/dL RDW 12.9 (11.5-15.5) % Plt Count 334 (125-369) X10(3)uL MPV 7.5 (7.4-10.4) fL Neut % (Auto) 72.7 (46-82) % Lymph % (Auto) 19.8 (13-37) % Dixon % (Auto) 5.5 (4-12) % Eos % (Auto) 2 (1.0-5.0) % Baso % (Auto) 0 (0-2) % Neut # (Auto) 6.8 (1.6-8.3) # Lymph # (Auto) 1.9 (0.6-5.0) # Dixon # (Auto) 0.5 (0.0-1.3) # Eos # (Auto) 0.2 (0.0-0.8) # Baso # (Auto) 0.0 (0.0-0.2) # PT 9.6 (8.7-11.1) INR 0.99 (0.89-1.13) APTT (24.4-33.2) SECONDS Sodium 138 (135-145) mmol/L Potassium 4.2 (3.5-5.3) mmol/L Chloride 103 (100-110) mmol/L Carbon Dioxide 25 (21-32) mmol/L BUN 21 H (7-18) mg/dL Creatinine 1.4 H (0.70-1.30) mg/dL Est Cr Clr Drug Dosing TNP Estimated GFR (MDRD) 48 L (>60) BUN/Creatinine Ratio 15.0 (9-20) Glucose 206 H (80-116) mg/dL POC Glucose (80-116) mg/dL Lactic Acid (0.4-2.0) mmol/L Calcium 8.4 L (8.6-10.2) mg/dL Magnesium (1.8-2.5) mg/dL Total Bilirubin 0.3 (0.1-1.3) mg/dL AST 13 (5-25) IU/L ALT 14 (12-36) U/L Alkaline Phosphatase 64 (56-112) IU/L Troponin I (<0.017-0.056) ng/mL Total Protein 6.2 (6.0-8.0) g/dL Albumin 3.6 (3.2-4.6) g/dL Globulin 2.6 g/dL Albumin/Globulin Ratio 1.4 Urine Color (YELLOW) Urine Appearance (CLEAR) Urine pH (5.0-6.5) Ur Specific Brandon (1.010-1.025) Urine Protein (NEGATIVE) mg/dL Urine Glucose (UA) (NORMAL) mg/dL Urine Ketones (NEGATIVE) mg/dL Urine Occult Blood (NEGATIVE) Urine Nitrite (NEGATIVE) Urine Bilirubin (NEGATIVE) Urine Urobilinogen (NEGATIVE) mg/dL Ur Leukocyte Esterase (NEGATIVE) Urine RBC (0-5) Urine WBC (0-5) Ur Squamous Epith Cells (NS,R,O) Calcium Oxalate Crystal (NS) Urine Bacteria (NS) Urine Mucus (NS) Ethyl Alcohol (<0.03) % 06/04/19 06/04/19 06/04/19 Range/Units 20:15 20:15 20:15 WBC (4.5-12.0) X10-3/uL RBC (4.30-5.75) x10(6)uL Hgb (13.5-17.8) g/dL Hct (30.0-51.3) % MCV (80-96) fL MCH (27.7-33.6) pg MCHC (32.2-35.4) g/dL RDW (11.5-15.5) % Plt Count (125-369) X10(3)uL MPV (7.4-10.4) fL Neut % (Auto) (46-82) % Lymph % (Auto) (13-37) % Dixon % (Auto) (4-12) % Eos % (Auto) (1.0-5.0) % Baso % (Auto) (0-2) % Neut # (Auto) (1.6-8.3) # Lymph # (Auto) (0.6-5.0) # Dixon # (Auto) (0.0-1.3) # Eos # (Auto) (0.0-0.8) # Baso # (Auto) (0.0-0.2) # PT (8.7-11.1) INR (0.89-1.13) APTT 22.1 L (24.4-33.2) SECONDS Sodium (135-145) mmol/L Potassium (3.5-5.3) mmol/L Chloride (100-110) mmol/L Carbon Dioxide (21-32) mmol/L BUN (7-18) mg/dL Creatinine (0.70-1.30) mg/dL Est Cr Clr Drug Dosing Estimated GFR (MDRD) (>60) BUN/Creatinine Ratio (9-20) Glucose (80-116) mg/dL POC Glucose (80-116) mg/dL Lactic Acid 1.7 (0.4-2.0) mmol/L Calcium (8.6-10.2) mg/dL Magnesium 1.5 L (1.8-2.5) mg/dL Total Bilirubin (0.1-1.3) mg/dL AST (5-25) IU/L ALT (12-36) U/L Alkaline Phosphatase (56-112) IU/L Troponin I (<0.017-0.056) ng/mL Total Protein (6.0-8.0) g/dL Albumin (3.2-4.6) g/dL Globulin g/dL Albumin/Globulin Ratio Urine Color (YELLOW) Urine Appearance (CLEAR) Urine pH (5.0-6.5) Ur Specific Brandon (1.010-1.025) Urine Protein (NEGATIVE) mg/dL Urine Glucose (UA) (NORMAL) mg/dL Urine Ketones (NEGATIVE) mg/dL Urine Occult Blood (NEGATIVE) Urine Nitrite (NEGATIVE) Urine Bilirubin (NEGATIVE) Urine Urobilinogen (NEGATIVE) mg/dL Ur Leukocyte Esterase (NEGATIVE) Urine RBC (0-5) Urine WBC (0-5) Ur Squamous Epith Cells (NS,R,O) Calcium Oxalate Crystal (NS) Urine Bacteria (NS) Urine Mucus (NS) Ethyl Alcohol (<0.03) % 06/04/19 06/04/19 06/04/19 Range/Units 20:20 20:20 21:40 WBC (4.5-12.0) X10-3/uL RBC (4.30-5.75) x10(6)uL Hgb (13.5-17.8) g/dL Hct (30.0-51.3) % MCV (80-96) fL MCH (27.7-33.6) pg MCHC (32.2-35.4) g/dL RDW (11.5-15.5) % Plt Count (125-369) X10(3)uL MPV (7.4-10.4) fL Neut % (Auto) (46-82) % Lymph % (Auto) (13-37) % Dixon % (Auto) (4-12) % Eos % (Auto) (1.0-5.0) % Baso % (Auto) (0-2) % Neut # (Auto) (1.6-8.3) # Lymph # (Auto) (0.6-5.0) # Dixon # (Auto) (0.0-1.3) # Eos # (Auto) (0.0-0.8) # Baso # (Auto) (0.0-0.2) # PT (8.7-11.1) INR (0.89-1.13) APTT (24.4-33.2) SECONDS Sodium (135-145) mmol/L Potassium (3.5-5.3) mmol/L Chloride (100-110) mmol/L Carbon Dioxide (21-32) mmol/L BUN (7-18) mg/dL Creatinine (0.70-1.30) mg/dL Est Cr Clr Drug Dosing Estimated GFR (MDRD) (>60) BUN/Creatinine Ratio (9-20) Glucose (80-116) mg/dL POC Glucose (80-116) mg/dL Lactic Acid (0.4-2.0) mmol/L Calcium (8.6-10.2) mg/dL Magnesium (1.8-2.5) mg/dL Total Bilirubin (0.1-1.3) mg/dL AST (5-25) IU/L ALT (12-36) U/L Alkaline Phosphatase (56-112) IU/L Troponin I < 0.017 L (<0.017-0.056) ng/mL Total Protein (6.0-8.0) g/dL Albumin (3.2-4.6) g/dL Globulin g/dL Albumin/Globulin Ratio Urine Color Yellow (YELLOW) Urine Appearance Slightly cloudy (CLEAR) Urine pH 5.0 (5.0-6.5) Ur Specific Brandon 1.025 (1.010-1.025) Urine Protein 30 H (NEGATIVE) mg/dL Urine Glucose (UA) Normal (NORMAL) mg/dL Urine Ketones 15 H (NEGATIVE) mg/dL Urine Occult Blood Negative (NEGATIVE) Urine Nitrite Negative (NEGATIVE) Urine Bilirubin Small H (NEGATIVE) Urine Urobilinogen 4 H (NEGATIVE) mg/dL Ur Leukocyte Esterase Small H (NEGATIVE) Urine RBC 0-5 (0-5) Urine WBC 0-5 (0-5) Ur Squamous Epith Cells Few H (NS,R,O) Calcium Oxalate Crystal Few H (NS) Urine Bacteria Few H (NS) Urine Mucus Few H (NS) Ethyl Alcohol < 0.03 (<0.03) % 06/04/19 06/05/19 06/05/19 Range/Units 23:10 06:28 07:15 WBC 6.1 (4.5-12.0) X10-3/uL RBC 3.65 L (4.30-5.75) x10(6)uL Hgb 11.7 L (13.5-17.8) g/dL Hct 33.6 (30.0-51.3) % MCV 92.0 (80-96) fL MCH 32.2 (27.7-33.6) pg MCHC 35.0 (32.2-35.4) g/dL RDW 12.9 (11.5-15.5) % Plt Count 251 (125-369) X10(3)uL MPV 7.4 (7.4-10.4) fL Neut % (Auto) 54.5 (46-82) % Lymph % (Auto) 35.6 (13-37) % Dixon % (Auto) 8.1 (4-12) % Eos % (Auto) 1 (1.0-5.0) % Baso % (Auto) 0 (0-2) % Neut # (Auto) 3.3 (1.6-8.3) # Lymph # (Auto) 2.2 (0.6-5.0) # Dixon # (Auto) 0.5 (0.0-1.3) # Eos # (Auto) 0.1 (0.0-0.8) # Baso # (Auto) 0.0 (0.0-0.2) # PT (8.7-11.1) INR (0.89-1.13) APTT (24.4-33.2) SECONDS Sodium (135-145) mmol/L Potassium (3.5-5.3) mmol/L Chloride (100-110) mmol/L Carbon Dioxide (21-32) mmol/L BUN (7-18) mg/dL Creatinine (0.70-1.30) mg/dL Est Cr Clr Drug Dosing Estimated GFR (MDRD) (>60) BUN/Creatinine Ratio (9-20) Glucose (80-116) mg/dL POC Glucose 111 (80-116) mg/dL Lactic Acid (0.4-2.0) mmol/L Calcium (8.6-10.2) mg/dL Magnesium (1.8-2.5) mg/dL Total Bilirubin (0.1-1.3) mg/dL AST (5-25) IU/L ALT (12-36) U/L Alkaline Phosphatase (56-112) IU/L Troponin I < 0.017 L (<0.017-0.056) ng/mL Total Protein (6.0-8.0) g/dL Albumin (3.2-4.6) g/dL Globulin g/dL Albumin/Globulin Ratio Urine Color (YELLOW) Urine Appearance (CLEAR) Urine pH (5.0-6.5) Ur Specific Brandon (1.010-1.025) Urine Protein (NEGATIVE) mg/dL Urine Glucose (UA) (NORMAL) mg/dL Urine Ketones (NEGATIVE) mg/dL Urine Occult Blood (NEGATIVE) Urine Nitrite (NEGATIVE) Urine Bilirubin (NEGATIVE) Urine Urobilinogen (NEGATIVE) mg/dL Ur Leukocyte Esterase (NEGATIVE) Urine RBC (0-5) Urine WBC (0-5) Ur Squamous Epith Cells (NS,R,O) Calcium Oxalate Crystal (NS) Urine Bacteria (NS) Urine Mucus (NS) Ethyl Alcohol (<0.03) % 06/05/19 06/05/19 Range/Units 07:15 15:37 WBC (4.5-12.0) X10-3/uL RBC (4.30-5.75) x10(6)uL Hgb (13.5-17.8) g/dL Hct (30.0-51.3) % MCV (80-96) fL MCH (27.7-33.6) pg MCHC (32.2-35.4) g/dL RDW (11.5-15.5) % Plt Count (125-369) X10(3)uL MPV (7.4-10.4) fL Neut % (Auto) (46-82) % Lymph % (Auto) (13-37) % Dixon % (Auto) (4-12) % Eos % (Auto) (1.0-5.0) % Baso % (Auto) (0-2) % Neut # (Auto) (1.6-8.3) # Lymph # (Auto) (0.6-5.0) # Dixon # (Auto) (0.0-1.3) # Eos # (Auto) (0.0-0.8) # Baso # (Auto) (0.0-0.2) # PT (8.7-11.1) INR (0.89-1.13) APTT (24.4-33.2) SECONDS Sodium 142 (135-145) mmol/L Potassium 4.2 (3.5-5.3) mmol/L Chloride 109 D (100-110) mmol/L Carbon Dioxide 25 (21-32) mmol/L BUN 18 (7-18) mg/dL Creatinine 1.1 (0.70-1.30) mg/dL Est Cr Clr Drug Dosing 53.89 Estimated GFR (MDRD) > 60 (>60) BUN/Creatinine Ratio 16.4 (9-20) Glucose 114 D (80-116) mg/dL POC Glucose (80-116) mg/dL Lactic Acid (0.4-2.0) mmol/L Calcium 8.0 L (8.6-10.2) mg/dL Magnesium (1.8-2.5) mg/dL Total Bilirubin (0.1-1.3) mg/dL AST (5-25) IU/L ALT (12-36) U/L Alkaline Phosphatase (56-112) IU/L Troponin I < 0.017 L (<0.017-0.056) ng/mL Total Protein (6.0-8.0) g/dL Albumin (3.2-4.6) g/dL Globulin g/dL Albumin/Globulin Ratio Urine Color (YELLOW) Urine Appearance (CLEAR) Urine pH (5.0-6.5) Ur Specific Brandon (1.010-1.025) Urine Protein (NEGATIVE) mg/dL Urine Glucose (UA) (NORMAL) mg/dL Urine Ketones (NEGATIVE) mg/dL Urine Occult Blood (NEGATIVE) Urine Nitrite (NEGATIVE) Urine Bilirubin (NEGATIVE) Urine Urobilinogen (NEGATIVE) mg/dL Ur Leukocyte Esterase (NEGATIVE) Urine RBC (0-5) Urine WBC (0-5) Ur Squamous Epith Cells (NS,R,O) Calcium Oxalate Crystal (NS) Urine Bacteria (NS) Urine Mucus (NS) Ethyl Alcohol (<0.03) % Med Orders - Current: Current Medications Aspirin (Ecotrin) 325 mg PO DAILY [facility] Last Admin: 06/05/19 12:29 Dose: 325 mg Enoxaparin Sodium (Lovenox) 30 mg SUBCUT Q24H [facility] Last Admin: 06/05/19 12:29 Dose: 30 mg Insulin Human Lispro (Humalog) 0 unit SUBCUT TIDMEALS [facility]; Protocol Last Admin: 06/05/19 12:42 Dose: 2 units Levothyroxine Sodium (Synthroid) 100 mcg PO ACBREAKFAST [facility] Last Admin: 06/05/19 06:30 Dose: 100 mcg Metformin HCl (Glucophage) 850 mg PO TID [facility] Multivitamins/Minerals/Vitamin C (Tab-A-Sofia) tab PO DAILY [facility] Pioglitazone HCl (Actos) 30 mg PO DAILY [facility] Simvastatin (Zocor) 40 mg PO BEDTIME [facility] Sodium Chloride (Saline Flush) 10 ml FLUSH ASDIRECTED PRN PRN Reason: Keep Vein Open Discontinued Medications Azithromycin (Zithromax) 500 mg PO Q12H [facility] Stop: 06/05/19 11:46 Last Admin: 06/05/19 12:29 Dose: 500 mg Sodium Chloride (Normal Saline) 500 mls @ 500 mls/hr IV .BOLUS ONE Stop: 06/04/19 21:03 Last Admin: 06/04/19 20:35 Dose: 500 mls/hr Magnesium Sulfate 2 gm/ Premix 50 mls @ 150 mls/hr IV ONETIME ONE Stop: 06/04/19 21:05 Last Admin: 06/04/19 20:58 Dose: 150 mls/hr Sodium Chloride (Normal Saline) 1,000 mls @ 100 mls/hr IV ASDIRECTED [facility] Last Admin: 06/05/19 00:35 Dose: 100 mls/hr Iopamidol (Isovue-370 (76%)) 150 ml IV ONETIME ONE Stop: 06/04/19 21:56 Last Admin: 06/04/19 22:26 Dose: Not Given Iopamidol (Isovue-370 (76%)) 100 ml IV ONETIME ONE Stop: 06/04/19 22:28 Last Admin: 06/04/19 22:40 Dose: 85 ml Thiamine HCl (Vitamin B-1) 100 mg IVPUSH ONETIME ONE Stop: 06/04/19 20:49 Last Admin: 06/04/19 20:56 Dose: 100 mg
[2019-06-05] MEDS ORDERED: Simvastatin 40 MG Tab PO SCH (21:00)
[2019-06-06] MEDS ORDERED: Multivitamin Tab PO SCH (09:00)
== END 2019-06-05 17:50 | disposition home or self-care (01) ==
LOC: FB.ED 19:52 → FB.MS 23:38
PROVIDERS: ADMIT Emergency Medicine; ATTEND Family Medicine
DX: R55 Syncope and collapse (principal); K52.9 Noninfective gastroenteritis and colitis, unspecified; I95.9 Hypotension, unspecified; E86.1 Hypovolemia; I77.4 Celiac artery compression syndrome; K55.1 Chronic vascular disorders of intestine; E78.00 Pure hypercholesterolemia, unspecified; I10 Essential (primary) hypertension; M10.9 Gout, unspecified; E11.9 Type 2 diabetes mellitus without complications; Z51.5 Encounter for palliative care; Z88.5 Allergy status to narcotic agent; Z79.82 Long term (current) use of aspirin; Z79.84 Long term (current) use of oral hypoglycemic drugs; Z79.899 Other long term (current) drug therapy
CPT/HCPCS: 36415; 74174; 80048; 80053; 81001; 82962; 83605; 83735; 84484; 85025; 85610; 85730; 87040; 93005; 99284; A9270-GY; G0480; J1650; J1815; J3411; J3475; J7030; J7040; Q9967